=== PATIENT | female | born 1965 | race Two or more races ===

== ENCOUNTER 2017-03-17 04:54 | Emergency (ER) | payer OTHER ==
--- NOTE | 2017-03-17 04:55 | ED Physician Documentation ---
General Adult - HISTORIAN Historian: patient - HPI Stated Complaint: rash Chief Complaint: General Adult Onset: days ago Timing: still present Further Comments: yes (Pt is a 51 yo female with a rash on chest, back, and upper extemities x 2 days. Rash is pruritic. No known new exposures. Pt states that she had some chest tightness, but thinks this may be due to anxiety about the rash.) - ROS CONST: no problems EYES/ENT: none CVS/RESP: none GI/: none MS/SKIN/LYMPH: rash - PAST HX Past History: other (hysterectomy) Allergies/Adverse Reactions: Allergies Allergy/AdvReac Type Severity Reaction Status Date / Time fluoxetine HCl [From Prozac] Allergy Intermediate Hives Verified 03/17/17 05:06 Sulfa (Sulfonamide Allergy Hives Verified 03/17/17 05:06 Antibiotics) Home Medications: Ambulatory Orders Medication Instructions Recorded NK [NK] 03/17/17 - SOCIAL HX Smoking History: non-smoker - FAMILY HX Family History: No - REVIEWED ASSESSMENTS Nursing Assessment Reviewed: Yes Vitals Reviewed: Yes Progress - Progress Progress: Solu-medrol 80 mg IM in ER. Benadryl 25 mg po in ER. Rx Prednisone 10 mg. Take 5 tablets at one time each day for 2 days; then take 4 tablets once daily for 2 days; then take 3 tablets once daily for 2 days; then take 2 tablets once daily for 2 days; then take 1 tablet once daily for 2 days; then stop. Benadryl 25 mg. (available over the counter). Use as directed. - EKG/XRAY/CT EKG: NSR (HR=81; normal EKG) General Adult Physical Exam - PHYSICAL EXAM GENERAL APPEARANCE: anxious EENT: pharynx normal NECK: normal inspection, supple RESPIRATORY: no resp distress, chest non-tender, breath sounds normal CVS: reg rate & rhythm, heart sounds normal BACK: normal inspection SKIN: other (maculopapular rash with small lesions on back, chest, and upper extremities) EXTREMITIES: non-tender, normal range of motion, no evidence of injury NEURO: oriented X3, motor nml, sensation nml Discharge Clincal Impression: Rash Condition: Good Disposition: 01 HOME, SELF-CARE Decision to Admit: NO Decision Time: 05:29
[2017-03-17 05:11] VITALS: BP 124/83
[2017-03-17] MEDS: methylPREDNISolone SOD SUCC 40 MG/ML VIAL IM ONE (05:20)
[2017-03-17] MEDS: diphenhydrAMINE HCL 25 MG TABLET PO ONE (05:20)
== END 2017-03-17 05:35 | disposition home or self-care (01) ==
LOC: ED 04:54
DX: R21 Rash and other nonspecific skin eruption (principal)
CPT/HCPCS: J2920; Q0163; 96372; 99283; J1030